=== PATIENT | female | born 1985 | race Hispanic/Latino ===

== ENCOUNTER → 2017-05-07 | Outpatient (CLI) | payer OTHER ==
[2017-05-07 19:16] LABS: BASO % 0.1 % (0.0-1.0); EOS # 0.1 K/mm3 (0.0-0.50); EOS % 0.9 % (0.0-3.0); LARGE UNSTAINED CELL # 0.1 K/mm3 (0.0-0.4); LARGE UNSTAINED CELL % 1.1 % (0.0-4.0); LYMPH # 1.8 K/mm3 (1.5-4.5); LYMPH % 17.6 % (24.0-44.0); MEAN CORPUSCULAR HEMOGLOBIN 31.6 pg (27.0-33.0); MEAN CORPUSCULAR HGB CONC 33.6 g/dl (32.0-36.5); MONO # 0.5 K/mm3 (0.0-0.8); MONO % 5.4 % (0.0-5.0); NEUTROPHILS % 74.9 % (36.0-66.0); PLATELET COUNT, AUTOMATED 229 k/mm3 (150-450); WHITE BLOOD COUNT 9.3 K/mm3 (4.0-10.0)
[2017-05-09 11:28] LABS: HBsAg Prenatal NEGATIVE (NEGATIVE)
== END ==
LOC: MERGE 13:12 → M LRY 13:12
PROVIDERS: ATTEND Advanced Practice Midwife
DX: Z34.81 Encounter for supervision of other normal pregnancy, first trimester (principal)

== ENCOUNTER 2017-05-09 19:53 | Emergency (ER) | payer OTHER ==
[~2017-05-09] VITALS: Ht 160 cm; Wt 66.8 kg
[2017-05-09] MEDS ORDERED: ACETAMINOPHEN 325 MG TAB PO ONE (21:15)
[2017-05-09 21:40] LABS: BASO % 0.5 % (0.0-1.0); EOS # 0.1 K/mm3 (0.0-0.50); EOS % 1.2 % (0.0-3.0); LARGE UNSTAINED CELL # 0.2 K/mm3 (0.0-0.4); LARGE UNSTAINED CELL % 1.5 % (0.0-4.0); LYMPH # 1.9 K/mm3 (1.5-4.5); LYMPH % 17.9 % (24.0-44.0); MEAN CORPUSCULAR HEMOGLOBIN 32.1 pg (27.0-33.0); MEAN CORPUSCULAR VOLUME 91.8 fl (80.0-96.0); MONO # 0.6 K/mm3 (0.0-0.8); MONO % 5.2 % (0.0-5.0); NEUTROPHILS % 73.7 % (36.0-66.0); PLATELET COUNT, AUTOMATED 241 k/mm3 (150-450); RED CELL DISTRIBUTION WIDTH 12.7 % (11.5-14.5); WHITE BLOOD COUNT 10.8 K/mm3 (4.0-10.0)
--- NOTE | 2017-05-09 22:10 | REPUSA ---
Clinical history: vaginal bleeding. Findings: Real-time transabdominal ultrasound images of the pelvis were obtained. There is a single i ntrauterine . The crown rump length measures 1.1 cm. heart rate measures 168 bpm. Ther e is a small subchorionic hemorrhage, measuring 1.6 x 1.6 x 2.3 cm. The right ovary measures 3.0 x 2 .4 x 3.0 cm. The left ovary measures 3.8 x 4.5 x 3.6 centimeters. There is a simple left ovarian cyst , measuring 2.4 x 2.4 cm. No adnexal masses are seen. Color Doppler flow is seen within both ovaries. There is no evidence of free fluid. Impression: 1. Single live intrauterine measuring 7 weeks 2 days, with estimated due date of 12/24/2017. 2. Small subchorionic hemorrhage. 3. Left ovarian corpus luteum cyst.
[2017-05-09 22:19] LABS: ANION GAP 8 MEQ/L (8-16); BLOOD UREA NITROGEN 13 MG/DL (7-18); CARBON DIOXIDE LEVEL 23 MEQ/L (21-32); CHLORIDE LEVEL 105 MEQ/L (98-107); CREATININE FOR GFR 0.73 MG/DL (0.55-1.02); GLOMERULAR FILTRATION RATE > 60.0 (>60); GLUCOSE, FASTING 111 MG/DL (70-105); HCG, SERUM QUANTITATIVE 83211 MIU/ML; POTASSIUM SERUM 3.6 MEQ/L (3.5-5.1); SODIUM LEVEL 136 MEQ/L (136-145)
[2017-05-09 22:37] VITALS: BP 136/78
== END 2017-05-09 22:37 | disposition home or self-care (01) ==
LOC: M ED 19:53
DX: O20.8 Other hemorrhage in early pregnancy (principal); Z3A.01 Less than 8 weeks gestation of pregnancy; O26.891 Other specified pregnancy related conditions, first trimester; O99.89 Other specified diseases and conditions complicating pregnancy, childbirth and the puerperium; N83.12 Corpus luteum cyst of left ovary

== ENCOUNTER → 2017-07-25 | Outpatient (CLI) | payer OTHER ==
--- NOTE | 2017-08-02 13:45 | REP ---
OB ULTRASOUND: Real-time sonographic evaluation of gravid uterus performed. There is a single living intrauterine gestation, estimated gestational age 18 weeks 2 days based on first ultrasound, EDC 12/24/2017. Today's measurements indicate appropriate growth. BPD 40 mm = 18 weeks 1 day, 49th percentile HC 152 mm = 18 weeks 2 days, 51st percentile AC 133 mm = 18 weeks 6 days, 63rd percentile Femur length 27 mm = 18 weeks 2 days, 53rd percentile HC/AC ratio 1.14, within normal range. Estimated weight 245 grams, 59th percentile. Cervix is closed, measures 5.5 cm in length. heart rate 169 beats per minute. SEEN/GROSSLY UNREMARKABLE Lateral ventricles Yes Posterior fossa No Upper lip No Four-chamber heart Yes LVOT Yes RVOT Yes Stomach Yes Cord insertion Yes Three vessel cord Yes Kidneys Yes Bladder Yes Spine Yes position breech. Placenta anterior and grade 0 with no previa or abruption. Amniotic fluid within normal limits. Signed by Nabor Moreno MD 08/02/2017 07:15 P
== END ==
LOC: M RAD 13:45 → MERGE 14:30
PROVIDERS: ATTEND Advanced Practice Midwife
DX: Z36 Encounter for antenatal screening of mother (principal)

== ENCOUNTER → 2017-08-02 | Outpatient (REF) | payer OTHER | LOC: M LAB REF 09:32 | PROVIDERS: ATTEND Advanced Practice Midwife | DX: Z34.82 Encounter for supervision of other normal pregnancy, second trimester (principal) ==